=== PATIENT | male | born 1970 | race Caucasian/White ===

== ENCOUNTER 2022-09-24 09:34 | Outpatient (CLI) | payer OTHER, SELFPAY ==
--- NOTE | ~2022-09-24 | XR_ITS ---
Clinical Indication: Hypertension PA and lateral views of the chest: Comparison: None Findings: The lungs are clear, without evidence of focal consolidation or pleural effusion. Cardiome diastinal silhouette is within normal limits. Bones and soft tissues are unremarkable. Impression: Normal chest. Reviewed, dictated and finalized at location . Impression: Normal chest.
--- NOTE | 2022-09-24 10:14 | ECG_ITS ---
Measurements Intervals [place] Rate: 67 P: 29 ND: 185 QRS: 28 QRSD: 117 T: 4 QT: 390 QTc: 412 Interpretive Statements SINUS RHYTHM MODERATE INTRAVENTRICULAR CONDUCTION DELAY [110+ ms QRS DURATION] NO PREVIOUS ECG AVAILABLE FOR COMPARISON Electronically Signed On 09-24-2022 11:58:04 CDT by Tessa Greenberg M.D.
[2022-09-24 10:37] LABS: Basophils Absolute Auto 0.1 K/mm3 (0.0-0.1); Basophils Percent Auto 1.5 % (0.2-1.2); Eosinophils Percent Auto 0.4 % (0-4.4); Hematocrit 43.6 % (42.0-52.0); Hemoglobin 14.5 g/dL (14.0-18.0); Immature Granulocyte Absolute 0.03 K/mm3 (0.00-0.031); Immature Granulocyte Percent A 0.6 % (0-0.5); Lymphocytes Absolute Auto 1.01 K/mm3 (0.9-3.2); Lymphocytes Percent Auto 19.5 % (18.3-44.2); Mean Corpuscular HGB Conc 33.3 g/dl (32-36); Mean Corpuscular Hemoglobin 28.3 pg (26-34); Mean Corpuscular Volume 85.2 fl (80-100); Monocytes Absolute Auto 0.4 K/mm3 (0.1-0.6); Monocytes Percent Auto 7.7 % (2.6-8.5); Neutrophils Absolute Auto 3.6 K/mm3 (1.3-6.7); Neutrophils Percent Auto 70.3 % (45.5-73.1); Platelet Count Result 213 k/mm3 (150-375); Red Blood Count 5.12 M/mm3 (4.6-6.20); Red Cell Distribution Width 13.7 % (11.5-14.5); White Blood Count 5.2 K/mm3 (4.5-10.0)
[2022-09-24 10:51] LABS: Alanine Aminotransferase 57 U/L (6-50); Alkaline Phosphatase 98 U/L (38-126); Anion Gap 6 mmol/L (8-16); Aspartate Amino Transferase 39 U/L (17-59); Bilirubin,Total 0.8 mg/dL (0.2-1.3); Blood Urea Nitrogen 14 mg/dL (9-20); Calcium 9.2 mg/dL (8.4-10.2); Carbon Dioxide 30 mmol/L (22-30); Chloride 103 mmol/L (98-107); Cholesterol 172 mg/dL (0-200); Estimated Glomerular Filt Rate > 60; Glucose 98 mg/dL (65-110); HDL Direct 44 mg/dL; Potassium 4.1 mmol/L (3.4-5.0); Sodium 139 mmol/L (137-145); Triglycerides 49 mg/dL (<150)
[2022-09-24 11:03] LABS: LDL Cholesterol Direct 110 mg/dL
[2022-09-24 11:04] LABS: Appearance Urine Clear (Clear); Bilirubin Urine Negative (Negative); Blood Urine Negative (Negative); Color Urine Yellow (Yellow); Glucose Urine UA Negative (Negative); Ketones Urine Negative (Negative); Leukocyte Esterase Ur Negative LEU/UL (NEGATIVE); Nitrate Urine Negative (Negative); Protein Urine Negative (Negative); Specific Grav Ur 1.018 (1.001-1.035); Urobilinogen Urine 0.2 mg/dL (<2.0); pH Urine 6.5 (5.0-9.0)
[2022-09-24 11:08] LABS: Add Urine Microscopic? NO
[2022-09-24 11:21] LABS: Hemoglobin A1C 5.1 % (<5.7); Prostate Specific Antigen 0.9 ng/mL (< OR = 4.0); Thyroid Stimulating Hormone 0.922 uIU/mL (0.465-4.680)
[2022-09-30 15:26] LABS: Metanephrine, Free 34 pg/mL (<=57); Normetanephrine, Free 170 pg/mL (<=148); Total, Free (MN + NMN) 204 pg/mL (<=205)
== END 2022-09-24 09:35 | disposition home or self-care (01) ==
PROVIDERS: PCP Family Medicine; Visit Provider Family Medicine
DX: E78.2 Mixed hyperlipidemia (principal); I10 Essential (primary) hypertension; E66.9 Obesity, unspecified; K21.9 Gastro-esophageal reflux disease without esophagitis; Z12.5 Encounter for screening for malignant neoplasm of prostate; I45.9 Conduction disorder, unspecified
CPT/HCPCS: 36415; 71046; 80053; 80061; 81003; 83036; 83835; 84153; 84443; 85025; 93005; G0103

== ENCOUNTER → 2022-10-29 15:23 | Outpatient (CLI) | payer OTHER, SELFPAY ==
--- NOTE | ~2022-10-29 | US_ITS ---
EXAMINATION: US retroperitoneal duplex ltd DATE: 10/29/2022 15:40 INDICATION: Hypertension. TECHNIQUE: Multiple grayscale, color Doppler, and pulsed Doppler images of the kidneys and renal mely melvina were obtained. COMPARISON: None. FINDINGS: The aorta peak systolic velocity is 88 cm/s. The right renal artery peak systolic velocity is 104 cm/ s in the proximal segment, 88 cm/s in the mid segment, and 84 cm/s in the distal segment. The left re nal artery peak systolic velocity is 58 cm/s in the proximal segment, 65 cm/s in the mid segment, and 57 cm/s in the distal segment. IMPRESSION: 1. No Doppler evidence of renal artery stenosis. Reviewed, dictated and finalized at location A.
== END ==
PROVIDERS: PCP Family Medicine; Visit Provider Family Medicine
DX: I10 Essential (primary) hypertension (principal)
CPT/HCPCS: 93976

== ENCOUNTER 2022-11-03 08:33 | Outpatient (CLI) | payer OTHER, SELFPAY ==
--- NOTE | 2022-11-16 10:19 | WPDHOMESLEEP ---
Sleep Study - Home Unattended Date of Study: 11/03/22 Ordering Provider: Britton Jhaveri MD Interpreting Provider: Clemencia Chand MD Home Sleep Study Type: Watch PAT Height: 1.83 m Weight: 107.048 kg Body Mass Index: 32.0 Neck Circumference (inches): 18 [place]: 9 Reason for Sleep Study Snoring, hypersomnolence Sleep History Jessica Molina is a 52-year-old male hypertension, GERD, seasonal allergies, obesity, and current tobacco use who had a home sleep study ordered by his primary care for evaluation of snoring and daytime sleepiness. The patient rarely awakens from sleep short of breath.? He rarely awakens at night with heartburn, belching or cough.? He constantly snores, and it is frequently loud enough that others complain.? He denies having trouble sleeping when he has a cold.? He denies waking up gasping for air throughout the night.? He denies having breathing problems at night observed by himself or others.? He denies sweating excessively at night.? He rarely has heart palpitations or irregular heartbeats during the night.? He denies falling asleep during the day or while driving.? He denies feeling paralyzed on falling asleep or on waking. He does not have loss of muscle tone with strong emotion. He denies having trouble at work due to sleepiness.? He rarely experiences vivid dreamlike scenes upon awakening or falling asleep.? He denies feeling afraid going to sleep.? He rarely has nightmares and occasionally remembers his dreams.? He frequently has thoughts racing through his mind.? He denies feeling sad or depressed.? He occasionally has anxiety.? He rarely has muscular tension.? He occasionally notices parts of his body jerk.? He rarely kicks during the night.? He denies having crawling and aching feelings in his legs but rarely has leg pain during the night.? He denies grinding his teeth during sleep and denies awakening with morning jaw pain.? He denies being bothered by pain during the day and denies being awakened by pain during the night.? He occasionally wakes up feeling stiff in the morning.? He rarely wakes up with sore or achy muscles.? He rarely wakes up with pain in the neck, spine or other joints.? Normal bedtime is between 9-930 p.m. on weekdays and at 10:30 p.m. on the weekends.? It takes him a few minutes to fall asleep.? He wakes up once throughout the night to urinate and is able to fall back asleep immediately.? He wakes up at 5:30 a.m. on weekdays and at 7:00 a.m. on the weekends.? He typically gets 7 hours of sleep per night.? He does not stay in bed after waking up in the morning.? He currently lives with his and 2 children.? He does not consume any caffeinated beverages within 2 hours of bedtime.? He rarely takes naps in the afternoon or the evening but when he does they are refreshing. Habits: Tobacco: Quit cigarettes 16 years ago, occasionally smokes cigars. Caffeine: 5-6 caffeinated beverages/day.? Alcohol: 6-8 alcoholic beverages per sitting when he does drink.? Recreational substance: none. [facility] Past Medical History Medical History (Updated 11/16/22 @ 10:20 by Clemencia Chand MD) BMI 31.0-31.9,adult BMI 32.0-32.9,adult Colon cancer screening Elevated liver enzymes (09/24/22) AST normal at 39 with ALT slightly elevated at 57 on 09/24/2022. Encounter for prostate cancer screening PSA 0.9 on 09/24/2022. Encounter for wellness examination in adult Essential hypertension (~09/24/22) EKG 09/24/2022 with sinus rhythm with intraventricular conduction delay. Chest x-ray revealed no active lung disease. No renal artery stenosis on ultrasound 10/29/2022. GERD (gastroesophageal reflux disease) history of stricture 15 years ago. Hypersomnia Obesity (BMI 30.0-34.9) Seasonal allergic rhinitis Seasonal allergies Tobacco use disorder, mild, abuse 20 pack-year history with patient quitting at age 39 except for 1 cigar per month. Family History Family History (Updated 09/24/22 @ 08:22 by Yolande Tan
[2022-11-16 10:29] VITALS: BMI 32.0
== END 2022-11-04 12:38 | disposition home or self-care (01) ==
LOC: ANHCSM 08:34
PROVIDERS: PCP Family Medicine; Visit Provider Family Medicine
DX: G47.10 Hypersomnia, unspecified (principal); G47.33 Obstructive sleep apnea (adult) (pediatric)
CPT/HCPCS: 95800

== ENCOUNTER → 2023-02-25 08:31 | Outpatient (CLI) | payer OTHER, SELFPAY ==
--- NOTE | ~2023-02-25 | XR_ITS ---
Left Knee Technique: AP, lateral, and sunrise views were obtained. Clinical History: Pain Findings: No fracture or dislocation is seen. Osseous alignment is anatomic. There is mild patellar s purring. Moderate joint effusion is seen. Impression: Mild patellar spurring. Moderate joint effusion. Reviewed, dictated and finalized at [facility]. Impression: Mild patellar spurring. Moderate joint effusion.
== END ==
PROVIDERS: PCP Nurse Practitioner Family; Visit Provider Nurse Practitioner Family
DX: M25.762 Osteophyte, left knee (principal); M25.462 Effusion, left knee
CPT/HCPCS: 73564

== ENCOUNTER 2023-03-15 07:00 | Outpatient (NON) | payer OTHER, SELFPAY | END 2023-03-15 07:01 | disposition home or self-care (01) | PROVIDERS: PCP Family Medicine; Visit Provider Internal Medicine Gastroenterology | DX: Z12.5 Encounter for screening for malignant neoplasm of prostate (principal); K62.1 Rectal polyp | CPT/HCPCS: 88305 ==

== ENCOUNTER 2023-03-15 08:10 | Day surgery (SDC) | payer OTHER, SELFPAY ==
[2023-02-11 11:53] VITALS: BMI 32.1
--- NOTE | 2023-03-12 14:31 | PM.HPGS ---
History of Present Illness History of Present Illness Consent: Risks, benefits, and alternatives have been discussed and questions answered. Patient agrees to proceed with procedure. Chief complaint: Neoplasm Screening Narrative: Jessica Molina is a 52 year old male referred for colon cancer screening. this is his 1st colonoscopy. Review of Systems Review of Systems: All systems reviewed & are unremarkable except as noted in HPI and below PMFSH Past Medical History Medical History BMI 31.0-31.9,adult BMI 32.0-32.9,adult Colon cancer screening Elevated liver enzymes (09/24/22) AST normal at 39 with ALT slightly elevated at 57 on 09/24/2022. Encounter for prostate cancer screening PSA 0.9 on 09/24/2022. Encounter for wellness examination in adult Essential hypertension (~09/24/22) EKG 09/24/2022 with sinus rhythm with intraventricular conduction delay. Chest x-ray revealed no active lung disease. No renal artery stenosis on ultrasound 10/29/2022. GERD (gastroesophageal reflux disease) history of stricture 15 years ago. Hypersomnia Left knee pain Obesity (BMI 30.0-34.9) Seasonal allergic rhinitis Seasonal allergies Tobacco use disorder, mild, abuse 20 pack-year history with patient quitting at age 39 except for 1 cigar per month. Surgical History Surgical History History of appendectomy Family History Family History Father Diabetes mellitus Grandparent Hypertension Grandparent Diabetes mellitus Social History Social History Smoking status: Former smoker Tobacco type: cigarettes and cigars Additional smoking assessment comments: quit 2009 years ago, smokes ooccasional cigar Alcohol intake: current Drinks per week: 7 Alcohol use details: socially, not daily Substance use: never Substance use type: does not use Lack of Transportation: No Lack of Food: Never True Current Housing: I Have Housing Concerned About Future Housing: No Difficulty Paying Gas/Electric Bills: No Difficulty Paying for Meds: No Currently Unemployed: No Education: High School Diploma/GED Difficulty w/ Childcare or Family Care: No Living arrangements: with family Occupation/Education: occupation Additional occupation/education comments: [employer] Gender identity (if verbalized by the patient): Male Sexual Orientation (if Verbalized by the Patient): Straight or Heterosexual Spiritual care concerns: No Agree to blood products: Yes Meds Home Medications and Allergies Home Medications Medication Instructions Recorded Confirmed Type diphenhydramine HCl 25 mg tablet 25 mg PO QHS PRN Allergic Symptoms 09/24/22 03/15/23 History (Benadryl Allergy) famotidine-Ca carb-mag hydrox 10 1 tablet PO BID PRN reflux 09/24/22 03/15/23 History mg-800 mg-165 mg chewable tablet (Pepcid Complete) fluticasone propionate 50 1 spray intranasal BID 09/24/22 03/15/23 History mcg/actuation nasal spray,suspension (Flonase Allergy Relief) amlodipine 10 mg tablet 10 mg PO DAILY #30 tabs 10/21/22 03/15/23 Rx Allergies Allergy/AdvReac Type Severity Reaction Status Date / Time Penicillins Allergy Mild Rash Verified 03/15/23 09:02 Exam Resp: Auscultation: clear to auscultation bilaterally Cardio: Rate: regular rate Rhythm: regular rhythm GI: GI Palp: Yes Soft to palpation and No Tenderness to palpation present (GI) Assessment and Plan Assessment and plan (1) Colon cancer screening: Code(s): Z12.11 - Encounter for screening for malignant neoplasm of colon Status: Acute Assessment and Plan: Colonoscopy with possible biopsy or polypectomy or cautery or injection of substances.
[2023-03-15 09:03] VITALS: BP 138/94; PULSE 58; RESP 16; TEMP 36.7; O2SAT 100
[2023-03-15] MEDS: LACTATED RINGERS 1,000 ML 150 ML IV CONT (09:14)
--- NOTE | 2023-03-15 09:55 | WPDANESEPPF ---
Anes - Initial Pre Proc Eval Procedure: Operation Date: 03/15/23 10:30 Proposed Procedures p Screening Colonoscopy - John Alcantar MD Date/Time: 03/15/23 09:55 Surgeon: John Alcantar MD Pre Op Diagnosis: Neoplasm Screening Patient Data Age: 52 Gender: M Height: 1.83 m Weight: 105.7 kg Last Vital Signs Temp 36.7 C 03/15/23 09:03 Pulse 58 L 03/15/23 09:03 Resp 16 03/15/23 09:03 BP 138/94 H 03/15/23 09:03 Pulse Ox 100 03/15/23 09:03 O2 Del Method Room Air 03/15/23 09:03 Allergies Allergy/AdvReac Type Severity Reaction Status Date / Time Penicillins Allergy Mild Rash Verified 03/15/23 09:02 Home Medications Medication Instructions Recorded Confirmed Type diphenhydramine HCl 25 mg tablet 25 mg PO QHS PRN Allergic Symptoms 09/24/22 03/15/23 History (Benadryl Allergy) famotidine-Ca carb-mag hydrox 10 1 tablet PO BID PRN reflux 09/24/22 03/15/23 History mg-800 mg-165 mg chewable tablet (Pepcid Complete) fluticasone propionate 50 1 spray intranasal BID 09/24/22 03/15/23 History mcg/actuation nasal spray,suspension (Flonase Allergy Relief) amlodipine 10 mg tablet 10 mg PO DAILY #30 tabs 10/21/22 03/15/23 Rx Patient hx anesthesia problems: none Family hx anesthesia problems: none Results Review: All pre-operative results and documents have been reviewed as part of the pre-operative evaluation. [facility] Past Medical History Medical History BMI 31.0-31.9,adult BMI 32.0-32.9,adult Colon cancer screening Elevated liver enzymes (09/24/22) AST normal at 39 with ALT slightly elevated at 57 on 09/24/2022. Encounter for prostate cancer screening PSA 0.9 on 09/24/2022. Encounter for wellness examination in adult Essential hypertension (~09/24/22) EKG 09/24/2022 with sinus rhythm with intraventricular conduction delay. Chest x-ray revealed no active lung disease. No renal artery stenosis on ultrasound 10/29/2022. GERD (gastroesophageal reflux disease) history of stricture 15 years ago. Hypersomnia Left knee pain Obesity (BMI 30.0-34.9) Seasonal allergic rhinitis Seasonal allergies Tobacco use disorder, mild, abuse 20 pack-year history with patient quitting at age 39 except for 1 cigar per month. Surgical History Surgical History History of appendectomy Family History Family History Father Diabetes mellitus Grandparent Hypertension Grandparent Diabetes mellitus Social History Social History Smoking status: Former smoker Tobacco type: cigarettes and cigars Additional smoking assessment comments: quit 2009 years ago, smokes ooccasional cigar Alcohol intake: current Drinks per week: 7 Alcohol use details: socially, not daily Substance use: never Substance use type: does not use Lack of Transportation: No Lack of Food: Never True Current Housing: I Have Housing Concerned About Future Housing: No Difficulty Paying Gas/Electric Bills: No Difficulty Paying for Meds: No Currently Unemployed: No Education: High School Diploma/GED Difficulty w/ Childcare or Family Care: No Living arrangements: with family Occupation/Education: occupation Additional occupation/education comments: [employer] Gender identity (if verbalized by the patient): Male Sexual Orientation (if Verbalized by the Patient): Straight or Heterosexual Spiritual care concerns: No Agree to blood products: Yes Anes - Eval Final PreProcedure Day of Procedure 03/15/23 09:55 Patient weight: obese Heart: regular rate and rhythm Lungs: decreased breath sounds Airway: Mallampati scale class II Neurological: alert and oriented Last oral intake: >/= 8 hours ASA classification: III Emergent: no Anesthe
[2023-03-15 10:56] VITALS: BP 143/98; PULSE 61; RESP 16; O2SAT 97
[2023-03-15 11:06] VITALS: BP 135/94; PULSE 64; RESP 18; O2SAT 99
[2023-03-15 11:16] VITALS: BP 140/94; PULSE 65; RESP 20; O2SAT 99
--- NOTE | 2023-03-15 11:18 | WPDANESPN ---
Anes - Prog Note Post-Op Date/Time: 03/15/23 11:18 Cardiovascular status: normal Respiratory status: normal Airway patency: baseline Mental status: baseline Post-Op hydration status: normal Vital Signs: Last Vital Signs Temp 36.7 C 03/15/23 09:03 Pulse 64 03/15/23 11:06 Resp 18 03/15/23 11:06 BP 135/94 H 03/15/23 11:06 Pulse Ox 99 03/15/23 11:06 O2 Del Method Room Air 03/15/23 11:06 Pain Score (VAS): 0 I/O: Intake & Output 03/14/23 03/15/23 03/15/23 23:59 07:59 15:59 Intake Total 400 Balance 400 Patient Feedback: Patient satisfied with anesthetic care.
== END 2023-03-15 11:24 | disposition home or self-care (01) ==
PROVIDERS: PCP Family Medicine; Visit Provider Internal Medicine Gastroenterology
PROC: 0DJD8ZZ Inspection of Lower Intestinal Tract, Via Natural or Artificial Opening Endoscopic (ICD-10-PCS; CPT 45378; principal; 2023-03-15 10:30)
DX: Z12.11 Encounter for screening for malignant neoplasm of colon (principal); D12.8 Benign neoplasm of rectum
CPT/HCPCS: 45385

== ENCOUNTER 2023-11-23 08:40 | Outpatient (CLI) | payer OTHER, SELFPAY ==
[2023-11-23 09:26] LABS: Basophils Absolute Auto 0.1 K/mm3 (0.0-0.1); Basophils Percent Auto 0.9 % (0.2-1.2); Hematocrit 41.6 % (42.0-52.0); Hemoglobin 13.6 g/dL (14.0-18.0); Immature Granulocyte Absolute 0.01 K/mm3 (0.00-0.031); Immature Granulocyte Percent A 0.2 % (0-0.5); Lymphocytes Absolute Auto 0.84 K/mm3 (0.9-3.2); Lymphocytes Percent Auto 15.3 % (18.3-44.2); Mean Corpuscular HGB Conc 32.7 g/dl (32-36); Mean Corpuscular Hemoglobin 28.5 pg (26-34); Mean Platelet Volume 10.7 fl (7.4-10.4); Monocytes Absolute Auto 0.5 K/mm3 (0.1-0.6); Monocytes Percent Auto 9.1 % (2.6-8.5); Neutrophils Absolute Auto 4.1 K/mm3 (1.3-6.7); Neutrophils Percent Auto 74.5 % (45.5-73.1); Platelet Count Result 206 k/mm3 (150-375); Red Blood Count 4.78 M/mm3 (4.6-6.20); Red Cell Distribution Width 13.2 % (11.5-14.5); White Blood Count 5.5 K/mm3 (4.5-10.0)
[2023-11-23 09:55] LABS: Alanine Aminotransferase 22 U/L (6-50); Albumin Level 4.7 g/dL (3.5-5.1); Alkaline Phosphatase 72 U/L (38-126); Anion Gap 8 mmol/L (4-12); Aspartate Amino Transferase 24 U/L (17-59); Bilirubin,Total 0.5 mg/dL (0.2-1.3); Blood Urea Nitrogen 18 mg/dL (9-20); Calcium 9.3 mg/dL (8.4-10.2); Carbon Dioxide 28 mmol/L (22-30); Chloride 105 mmol/L (98-107); Cholesterol 147 mg/dL (0-200); Estimated Glomerular Filt Rate > 60; Glucose 92 mg/dL (65-110); HDL Direct 42 mg/dL; Potassium 3.7 mmol/L (3.4-5.0); Sodium 141 mmol/L (137-145); Triglycerides 101 mg/dL (<150)
[2023-11-23 10:06] LABS: LDL Cholesterol Direct 88 mg/dL
[2023-11-23 10:25] LABS: Prostate Specific Antigen 0.9 ng/mL (< OR = 4.0); Thyroid Stimulating Hormone 0.915 uIU/mL (0.465-4.680)
[2023-11-30 13:16] LABS: GGT 25 U/L
== END 2023-11-23 08:41 | disposition home or self-care (01) ==
LOC: ANHLAB 08:41
PROVIDERS: PCP Family Medicine; Visit Provider Family Medicine
DX: Z12.5 Encounter for screening for malignant neoplasm of prostate (principal); I10 Essential (primary) hypertension; E78.2 Mixed hyperlipidemia; R74.8 Abnormal levels of other serum enzymes; G47.33 Obstructive sleep apnea (adult) (pediatric)
CPT/HCPCS: 36415; 80053; 80061; 82977; 84153; 84443; 85025; G0103

== ENCOUNTER 2023-11-24 07:06 | Outpatient (CLI) | payer OTHER, SELFPAY ==
[2023-11-24 07:44] LABS: Appearance Urine Clear (Clear); Bilirubin Urine Negative (Negative); Blood Urine Negative (Negative); Color Urine Yellow (Yellow); Glucose Urine UA Negative (Negative); Ketones Urine Negative (Negative); Leukocyte Esterase Ur Negative LEU/UL (Negative); Nitrate Urine Negative (Negative); Protein Urine Negative (Negative); Specific Grav Ur 1.014 (1.001-1.035); Urobilinogen Urine 0.2 mg/dL (<2.0)
[2023-11-24 07:51] LABS: Add Urine Microscopic? NO
== END 2023-11-24 07:07 | disposition home or self-care (01) ==
LOC: ANHLAB 07:09
PROVIDERS: PCP Family Medicine; Visit Provider Family Medicine
DX: I10 Essential (primary) hypertension (principal)
CPT/HCPCS: 81003

== ENCOUNTER 2023-12-08 07:01 | Outpatient (CLI) | payer OTHER, SELFPAY ==
[2023-12-08 07:55] LABS: Basophils Percent Auto 0.7 % (0.2-1.2); Hematocrit 41.6 % (42.0-52.0); Hemoglobin 14.1 g/dL (14.0-18.0); Immature Granulocyte Absolute 0.01 K/mm3 (0.00-0.031); Immature Granulocyte Percent A 0.2 % (0-0.5); Lymphocytes Absolute Auto 0.76 K/mm3 (0.9-3.2); Lymphocytes Percent Auto 17.6 % (18.3-44.2); Mean Corpuscular HGB Conc 33.9 g/dl (32-36); Mean Corpuscular Hemoglobin 29.2 pg (26-34); Mean Corpuscular Volume 86.1 fl (80-100); Monocytes Absolute Auto 0.7 K/mm3 (0.1-0.6); Monocytes Percent Auto 16.2 % (2.6-8.5); Neutrophils Absolute Auto 2.8 K/mm3 (1.3-6.7); Neutrophils Percent Auto 65.3 % (45.5-73.1); Platelet Count Result 204 k/mm3 (150-375); Red Blood Count 4.83 M/mm3 (4.6-6.20); Red Cell Distribution Width 13.2 % (11.5-14.5); White Blood Count 4.3 K/mm3 (4.5-10.0)
[2023-12-08 09:11] LABS: Iron 31 ug/dL (49-181)
[2023-12-08 09:16] LABS: Folic Acid > 20.0 ng/mL (2.76->20)
[2023-12-08 09:20] LABS: Percent Iron Saturation 11 % (20-50)
== END 2023-12-08 07:02 | disposition home or self-care (01) ==
PROVIDERS: PCP Family Medicine; Visit Provider Family Medicine
DX: D64.9 Anemia, unspecified (principal)
CPT/HCPCS: 36415; 82607; 82728; 82746; 83540; 83550; 85025

== ENCOUNTER 2024-05-16 07:01 | Outpatient (CLI) | payer OTHER, SELFPAY ==
[2024-05-16 08:00] LABS: Alanine Aminotransferase 27 U/L (6-50); Albumin Level 4.2 g/dL (3.5-5.1); Alkaline Phosphatase 80 U/L (38-126); Anion Gap 4 mmol/L (4-12); Aspartate Amino Transferase 31 U/L (17-59); Bilirubin,Total 0.4 mg/dL (0.2-1.3); Blood Urea Nitrogen 14 mg/dL (9-20); Calcium 9.6 mg/dL (8.4-10.2); Carbon Dioxide 29 mmol/L (22-30); Chloride 106 mmol/L (98-107); Estimated Glomerular Filt Rate > 60; Glucose 91 mg/dL (65-110); Potassium 3.5 mmol/L (3.4-5.0); Sodium 139 mmol/L (137-145)
[2024-05-16 08:04] LABS: Basophils Absolute Auto 0.1 K/mm3 (0.0-0.1); Basophils Percent Auto 1.6 % (0.2-1.2); Hematocrit 37.1 % (42.0-52.0); Hemoglobin 12.6 g/dL (14.0-18.0); Immature Granulocyte Absolute 0.02 K/mm3 (0.00-0.031); Immature Granulocyte Percent A 0.4 % (0-0.5); Lymphocytes Percent Auto 25.1 % (18.3-44.2); Mean Corpuscular Hemoglobin 29.9 pg (26-34); Mean Corpuscular Volume 88.1 fl (80-100); Mean Platelet Volume 10.3 fl (7.4-10.4); Monocytes Absolute Auto 0.6 K/mm3 (0.1-0.6); Monocytes Percent Auto 11.1 % (2.6-8.5); Neutrophils Absolute Auto 3.4 K/mm3 (1.3-6.7); Neutrophils Percent Auto 61.8 % (45.5-73.1); Platelet Count Result 217 k/mm3 (150-375); Red Blood Count 4.21 M/mm3 (4.6-6.20); Red Cell Distribution Width 13.6 % (11.5-14.5); White Blood Count 5.6 K/mm3 (4.5-10.0)
[2024-05-16 08:06] LABS: Iron 72 ug/dL (49-181)
[2024-05-16 08:19] LABS: Percent Iron Saturation 23 % (20-50)
== END 2024-05-16 07:02 | disposition home or self-care (01) ==
PROVIDERS: PCP Family Medicine; Visit Provider Family Medicine
DX: R74.8 Abnormal levels of other serum enzymes (principal); D50.9 Iron deficiency anemia, unspecified
CPT/HCPCS: 36415; 80053; 82728; 83540; 83550; 85025

== ENCOUNTER 2024-08-02 07:06 | Outpatient (CLI) | payer OTHER, SELFPAY ==
--- OUTSIDE RECORDS SUMMARY | 2024-08-02 07:09 | XMS_ITS | Clinical Summary ---
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 Gender Identity Not on file Sexual Orientation Not on file Plan of Treatment Health Maintenance Due Date Last Done Comments Hepatitis C Virus (HCV) Screening 1969 TdaP Immunization 1969 Hepatitis B Immunization (1 of 3 - 19+ 3-dose series) 1988 Colonoscopy 2014 Colorectal Cancer Screening 2014 Cologuard 08/15/2019 Immunochemical Fecal Occult Blood 08/15/2019 Pneumococcal Immunization (5 0+ years) (1 of 1 - PCV) 08/15/2019 Zoster Immunization (1 of 2) 08/15/2019 Influenza Immunization (#1) 2024 SARS-COV-2 Immunization ( - season) 2024 Respiratory Syncytial Virus (RSV) Immunization (Adult) (1 - 1-dose 75+ series) 2044 Meningococcal Immunization (ACWY) Aged Out No longer eligible based on patient's age to complete this topic Pneumococcal Immunization Combined Aged Out No longer eligible based on patient's age to complete this topic Rotavirus Immunization Aged Out No lo nger eligible based on patient's age to complete this topic
[2024-08-02 08:08] LABS: Basophils Absolute Auto 0.1 K/mm3 (0.0-0.1); Basophils Percent Auto 1.2 % (0.2-1.2); Hematocrit 37.9 % (42.0-52.0); Hemoglobin 13.2 g/dL (14.0-18.0); Immature Granulocyte Absolute 0.01 K/mm3 (0.00-0.031); Immature Granulocyte Percent A 0.2 % (0-0.5); Lymphocytes Absolute Auto 1.33 K/mm3 (0.9-3.2); Lymphocytes Percent Auto 25.6 % (18.3-44.2); Mean Corpuscular HGB Conc 34.8 g/dl (32-36); Mean Corpuscular Hemoglobin 30.6 pg (26-34); Mean Corpuscular Volume 87.7 fl (80-100); Mean Platelet Volume 10.2 fl (7.4-10.4); Monocytes Absolute Auto 0.5 K/mm3 (0.1-0.6); Monocytes Percent Auto 9.8 % (2.6-8.5); Neutrophils Absolute Auto 3.3 K/mm3 (1.3-6.7); Neutrophils Percent Auto 63.2 % (45.5-73.1); Platelet Count Result 192 k/mm3 (150-375); Red Blood Count 4.32 M/mm3 (4.6-6.20); Red Cell Distribution Width 13.2 % (11.5-14.5); White Blood Count 5.2 K/mm3 (4.5-10.0)
[2024-08-02 08:38] LABS: Iron 94 ug/dL (49-181)
[2024-08-02 08:53] LABS: Percent Iron Saturation 33 % (20-50)
[2024-08-02 09:37] LABS: Folic Acid > 20.0 ng/mL (2.76->20)
== END 2024-08-02 07:07 | disposition home or self-care (01) ==
LOC: ANHLAB 07:07
PROVIDERS: PCP Family Medicine; Visit Provider Family Medicine
DX: D50.9 Iron deficiency anemia, unspecified (principal)
CPT/HCPCS: 36415; 82607; 82728; 82746; 83540; 83550; 85025

== ENCOUNTER 2024-08-22 00:59 | Day surgery (SDC) | payer OTHER, SELFPAY ==
[2024-08-11 10:02] VITALS: BMI 26.2
--- OUTSIDE RECORDS SUMMARY | 2024-08-22 01:02 | XMS_ITS | Clinical Summary ---
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
[2024-08-22 06:21] VITALS: BP 130/81; PULSE 62; RESP 18; TEMP 36.1; O2SAT 100; BMI 26.9
[2024-08-22] MEDS: LACTATED RINGERS 1,000 ML 150 ML IV CONT (06:28)
--- NOTE | 2024-08-22 07:04 | P.PNAN_ITS ---
Anes - Initial Pre Proc Eval Procedure: Operation Date: 08/22/24 07:30 Proposed Procedures p Esophagogastroduodenoscopy - Francis Garcia MD Date/Time: 08/22/24 07:04 Surgeon: Francis Garcia MD Pre Op Diagnosis: Anemia Patient Data Age: 54 Gender: M Height: 1.83 m Weight: 90.1 kg Last Vital Signs Temp 36.1 C L 08/22/24 06:21 Pulse 62 08/22/24 06:21 Resp 18 08/22/24 06:21 BP 130/81 08/22/24 06:21 Pulse Ox 100 08/22/24 06:21 O2 Del Method Room Air 08/22/24 06:21 Allergies Allergy/AdvReac Type Severity Reaction Status Date / Time Penicillins Allergy Mild Rash Verified 08/22/24 06:20 Home Medications ?Medication ?Instructions ?Recorded ?Confirmed ?Type famotidine-Ca carb-mag hydrox 10 1 tablet PO BID PRN reflux 09/24/22 08/11/24 History mg-800 mg-165 mg chewable tablet (Pepcid Complete) fluticasone propionate 50 1 spray intranasal BID 09/24/22 08/11/24 History mcg/actuation nasal spray,suspension (Flonase Allergy Relief) loratadine 10 mg tablet (Claritin) 10 mg PO DAILY PRN allergic 10/28/23 08/11/24 History symptoms valacyclovir 1 gram tablet 1,000 mg PO .COMPLEX #20 tabs 10/28/23 08/11/24 Rx ferrous sulfate 325 mg (65 mg 325 mg PO DAILY 02/06/24 08/22/24 History iron) tablet,delayed release tirzepatide 5 mg/0.5 mL 5 mg subcut WEEKLY 05/22/24 08/22/24 History subcutaneous pen injector (Mounjaro) amlodipine 10 mg tablet 10 mg PO DAILY #90 tabs 07/24/24 08/22/24 Rx irbesartan 150 mg tablet 150 mg PO DAILY #90 tabs 07/24/24 08/22/24 Rx Patient hx anesthesia problems: none Family hx anesthesia problems: none Results Review: All pre-operative results and documents have been reviewed as part of the pre-operative evaluation. [facility] Past Medical History Medical History BMI 28.0-28.9,adult Overweight (BMI 25.0-29.9) Iron deficiency anemia, unspecified (11/23/23) hemoglobin 13.6 on 11/23/2023.Hemoglobin 14.1 with iron 31 with 11% saturation and ferritin 123, vitamin B12 713, folic acid 03/26/2024. Hemoglobin 12.6, iron 72 with 23% saturation and ferritin 148 on 05/16/2024. Anemia (11/23/23) hemoglobin 13.6 on 11/23/2023.Hemoglobin 14.1 with iron 31 with 11% saturation and ferritin 123, vitamin B12 713, folic acid 03/26/2024. Nail fungal infection Fever blister BMI 30.0-30.9,adult Colon polyp, hyperplastic (03/15/23) 8 mm hyperplastic rectal polyp 03/15/2023 with recheck in 10 years. Left knee pain BMI 31.0-31.9,adult Elevated liver enzymes (09/24/22) AST normal at 39 with ALT slightly elevated at 57 on 09/24/2022. GGT 25, AST 24, ALT 22 on 11/23/2023. Tobacco use disorder, mild, abuse 20 pack-year history with patient quitting at age 39 except for 1 cigar per month. Essential hypertension (~09/24/22) EKG 09/24/2022 with sinus rhythm with intraventricular conduction delay. Chest x-ray revealed no active lung disease. No renal artery stenosis on ultrasound 10/29/2022. Colon cancer screening Hypersomnia Seasonal allergic rhinitis GERD (gastroesophageal reflux disease) history of stricture 15 years ago. BMI 32.0-32.9,adult Obesity (BMI 30.0-34.9) Encounter for prostate cancer screening PSA 0.9 on 09/24/2022. PSA 0.9 on 11/23/2023. Encounter for wellness examination in adult Seasonal allergies Surgical History Surgical History History of appendectomy Family History Family History Father Diabetes mellitus Grandparent Hypertension Grandparent Diabetes mellitus Social History Social History Smoking packs per day: 1 Smoking cigarettes per day: 20.0 Years smoked: 12 Smoking pack-years: 12.00 Smoking status: Former smoker Tobacco type: cigars Additional smoking assessment comments: quit 2009 years ago, smokes ooccasional cigar Alcohol intake: current Drinks per week: 7 Alcohol use details: socially, not daily Substance use: never Substance use type: does not use Lack of Transportation: No Lack of Food: Never True Current Housing: I Have Housing Concerned About Future Housing: No Difficulty Paying Gas/Electric Bills: No Difficulty Paying for Meds: No Currently Unemployed: No Education: High School Diploma/GED Difficulty w/ Childcare or Family Care: No Living arrangements: with family Occupation/Education: occupation Additional occupation/education comments: [employer] Gender identity (if verbalized by the patient): Male Sexual Orientation (if Verbalized by the Patient): Straight or Heterosexual Spiritual care concerns: No Agree to blood products: Yes Anes - Eval Final PreProcedure Day of Procedure 08/22/24 07:04 Patient weight: overweight Heart: regular rate and rhythm Lungs: clear to auscultation Airway: Mallampati scale class II Neurological: alert and oriented Last oral intake: >/= 8 hours ASA classification: III Emergent: no Anesthetic plan: proceed Anesthesia type and monitoring: general GIVS and standard monitoring Results Review: All pre-operative results and documents have been reviewed as part of the pre- operative evaluation. Informed Consent: The patient's anesthetic plan and its attendant risks and benefits were discussed with the patient/family/POA. Questions were solicited and answers provided to the satisfaction of the patient/family/POA.
--- NOTE | 2024-08-22 07:24 | P.HP_ITS ---
History of Present Illness History of Present Illness Consent: Risks, benefits, and alternatives have been discussed and questions answered. Patient agrees to proceed with procedure. Chief complaint: Anemia Narrative: Jessica Molina is a 54 year old male here with anemia, denies overt gib, had colonoscopy 02/2023 Review of Systems Review of Systems: All systems reviewed & are unremarkable except as noted in HPI and below PMFSH Past Medical History Medical History BMI 28.0-28.9,adult Overweight (BMI 25.0-29.9) Iron deficiency anemia, unspecified (11/23/23) hemoglobin 13.6 on 11/23/2023.Hemoglobin 14.1 with iron 31 with 11% satura tion and ferritin 123, vitamin B12 713, folic acid 03/26/2024. Hemoglobin 12.6, iron 72 with 23% saturation and ferritin 148 on 05/16/2024. Anemia (11/23/23) hemoglobin 13.6 on 11/23/2023.Hemoglobin 14.1 with iron 31 with 11% saturation and ferritin 123, vitamin B12 713, folic acid 03/26/2024. Nail fungal infection Fever blister BMI 30.0-30.9,adult Colon polyp, hyperplastic (03/15/23) 8 mm hyperplastic rectal polyp 03/15/2023 with recheck in 10 years. Left knee pain BMI 31.0-31.9,adult Elevated liver enzymes (09/24/22) AST normal at 39 with ALT slightly elevated at 57 on 09/24/2022. GGT 25, AST 24, ALT 22 on 11/23/2023. Tobacco use disorder, mild, abuse 20 pack-year history with patient quitting at age 39 except for 1 cigar per month. Essential hypertension (~09/24/22) EKG 09/24/2022 with sinus rhythm with intraventricular conduction delay. Chest x-ray revealed no active lung disease. No renal artery stenosis on ultrasound 10/29/2022. Colon cancer screening Hypersomnia Seasonal allergic rhinitis GERD (gastroesophageal reflux disease) history of stricture 15 years ago. BMI 32.0-32.9,adult Obesity (BMI 30.0-34.9) Encounter for prostate cancer screening PSA 0.9 on 09/24/2022. PSA 0.9 on 11/23/2023. Encounter for wellness examination in adult Seasonal allergies Surgical History Surgical History History of appendectomy Family History Family History Father Diabetes mellitus Grandparent Hypertension Grandparent Diabetes mellitus Social History Social History Smoking packs per day: 1 Smoking cigarettes per day: 20.0 Years smoked: 12 Smoking pack-years: 12.00 Smoking status: Former smoker Tobacco type: cigars Additional smoking assessment comments: quit 2009 years ago, smokes ooccasional cigar Alcohol intake: current Drinks per week: 7 Alcohol use details: socially, not daily Substance use: never Substance use type: does not use Lack of Transportation: No Lack of Food: Never True Current Housing: I Have Housing Concerned About Future Housing: No Difficulty Paying Gas/Electric Bills: No Difficulty Paying for Meds: No Currently Unemployed: No Education: High School Diploma/GED Difficulty w/ Childcare or Family Care: No Living arrangements: with family Occupation/Education: occupation Additional occupation/education comments: [employer] Gender identity (if verbalized by the patient): Male Sexual Orientation (if Verbalized by the Patient): Straight or Heterosexual Spiritual care concerns: No Agree to blood products: Yes Meds Home Medications and Allergies Home Medications ?Medication ?Instructions ?Recorded ?Confirmed ?Type famotidine-Ca carb-mag hydrox 10 1 tablet PO BID PRN reflux 09/24/22 08/11/24 History mg-800 mg-165 mg chewable tablet (Pepcid Complete) fluticasone propionate 50 1 spray intranasal BID 09/24/22 08/11/24 History mcg/actuation nasal spray,suspension (Flonase Allergy Relief) loratadine 10 mg tablet (Claritin) 10 mg PO DAILY PRN allergic 10/28/23 08/11/24 History symptoms valacyclovir 1 gram tablet 1,000 mg PO .COMPLEX #20 tabs 10/28/23 08/11/24 Rx ferrous sulfate 325 mg (65 mg 325 mg PO DAILY 02/06/24 08/22/24 History iron) tablet,delayed release tirzepatide 5 mg/0.5 mL 5 mg subcut WEEKLY 05/22/24 08/22/24 History subcutaneous pen injector (Julia) amlodipine 10 mg tablet 10 mg PO DAILY #90 tabs 07/24/24 08/22/24 Rx irbesartan 150 mg tablet 150 mg PO DAILY #90 tabs 07/24/24 08/22/24 Rx Allergies Allergy/AdvReac Type Severity Reaction Status Date / Time Penicillins Allergy Mild Rash Verified 08/22/24 06:20 Vital Signs Vital Signs - 24 hr 08/22/24 06:21 Temperature 97 F L Pulse Rate 62 Respiratory Rate 18 Blood Pressure 130/81 Pulse Oximetry 100 Oxygen Delivery Room Air Exam Const: General: comfortable and no acute distress HENMT: Face/Nose/Sinus: Normal nares present Eyes: General: appearance normal, both eyes and all related structures Neck: Neck: no JVD Resp: Auscultation: clear to auscultation bilaterally Cardio: Rate: regular rate Rhythm: regular rhythm GI: Inspection: non-distended GI Palp: Yes Soft to palpation Skin: General skin exam: normal color Neuro: General: gait normal Speech: normal speech Extrem: General: normal to inspection Psych: Mental Status: mental status grossly normal Assessment and Plan Assessment and plan (1) Anemia: Onset Date: 11/23/23 Code(s): D64.9 - Anemia, unspecified Status: Acute Assessment and Plan: egd
[2024-08-22 07:36] VITALS: BP 116/73; PULSE 56; RESP 25; O2SAT 100
[2024-08-22 07:46] VITALS: BP 123/73; PULSE 53; RESP 12; O2SAT 98
[2024-08-22 07:56] VITALS: BP 132/86; PULSE 55; RESP 14; O2SAT 98
== END 2024-08-22 08:01 | disposition home or self-care (01) ==
PROVIDERS: PCP Family Medicine; Referring Provider Family Medicine; Visit Provider Internal Medicine Gastroenterology
PROC: 0DJ08ZZ Inspection of Upper Intestinal Tract, Via Natural or Artificial Opening Endoscopic (ICD-10-PCS; CPT 43239; principal; 2024-08-22 07:30)
DX: D50.9 Iron deficiency anemia, unspecified (principal); K21.00 Gastro-esophageal reflux disease with esophagitis, without bleeding; K29.50 Unspecified chronic gastritis without bleeding
CPT/HCPCS: 43239; 88305; J2003; J2704; J7120

== ENCOUNTER 2025-01-04 07:03 | Outpatient (CLI) | payer OTHER, SELFPAY ==
--- OUTSIDE RECORDS SUMMARY | 2025-01-04 07:05 | XMS_ITS | Clinical Summary ---
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 Name Role Phone Unavailable Primary Care Provider Unavailabl e Social History Tobacco Use Types Packs/Day Years Used Date Smoking Tobacco: Never Assessed Sex and Gender Information Value Date Recorded Sex Assigned at Not on file Legal Sex Male 9:24 AM [employer] Gender Identity Not on file Sexual Orientation Not on file Plan of Treatment Health Maintenance Due Date Last Done Comments Hepatitis C Virus (HCV) Screening 1969 TdaP Immunization 1969 Hepatitis B Immunization (1 of 3 - 19+ 3-dose series) 1988 Cologuard 2014 Colonoscopy 2014 Colorectal Cancer Screening 2014 Immunochemical Fecal Occult Blood 2014 Pneumococcal Immunization (5 0+ years) (1 of 1 - PCV) 08/15/2019 Zoster Immunization (1 of 2) 08/15/2019 SARS-COV-2 Immunization (1 - 2023- season) 2024 Influenza Immunization (#1) 2025 Respiratory Syncytial Virus (RSV) Immunization (Adult) (1 - 1-dose 75+ series) 2044 Human Papillomavirus (HPV) Immunization Aged Out No longer eligible b ased on patient's age to complete this topic Meningococcal Immunization (ACWY) Aged Out No longer eligible based on patient's age to complete this topic Rotavirus Immunization Aged Out No lo nger eligible based on patient's age to complete this topic
[2025-01-04 08:03] LABS: Hematocrit 36.4 % (42.0-52.0); Hemoglobin 12.2 g/dL (14.0-18.0); Immature Granulocyte Percent A 0.6 % (0-0.5); Lymphocytes Absolute Auto 1.37 K/mm3 (0.9-3.2); Mean Corpuscular HGB Conc 33.5 g/dl (32-36); Mean Corpuscular Hemoglobin 30.1 pg (26-34); Mean Corpuscular Volume 89.9 fl (80-100); Nucleated Red Blood Cells Absolute Auto 0.000 K/mm3 (0.0-0.012); Nucleated Red Blood Cells Perc 0.0 % (0.0-0.2); Platelet Count Result 189 k/mm3 (150-375); Red Blood Count 4.05 M/mm3 (4.6-6.20); White Blood Count 5.1 K/mm3 (4.5-10.0)
[2025-01-04 08:15] LABS: Alanine Aminotransferase 31 U/L (6-50); Albumin Level 4.3 g/dL (3.5-5.1); Alkaline Phosphatase 70 U/L (38-126); Anion Gap 6 mmol/L (4-12); Aspartate Amino Transferase 34 U/L (17-59); Bilirubin,Total 0.5 mg/dL (0.2-1.3); Blood Urea Nitrogen 17 mg/dL (9-20); Calcium 9.4 mg/dL (8.4-10.2); Carbon Dioxide 27 mmol/L (22-30); Chloride 106 mmol/L (98-107); Cholesterol 152 mg/dL (0-200); Estimated Glomerular Filt Rate > 60; Glucose 87 mg/dL (65-110); HDL Direct 59 mg/dL; Sodium 139 mmol/L (137-145); Total Protein 6.8 g/dL (6.3-8.2); Triglycerides 58 mg/dL (<150)
[2025-01-04 08:19] LABS: Iron 74 ug/dL (49-181)
[2025-01-04 08:27] LABS: Potassium 3.4 mmol/L (3.4-5.0)
[2025-01-04 08:32] LABS: Percent Iron Saturation 24 % (20-50)
[2025-01-04 08:53] LABS: Prostate Specific Antigen 1.2 ng/mL (< OR = 4.0); Thyroid Stimulating Hormone 1.070 uIU/mL (0.465-4.680)
[2025-01-04 09:00] LABS: Ferritin 161.00 ng/mL (11.1-264)
[2025-01-04 09:28] LABS: Vitamin B12 973.0 pg/mL (239-931)
== END 2025-01-04 07:04 | disposition home or self-care (01) ==
LOC: ANHLAB 07:04
PROVIDERS: PCP Family Medicine; Visit Provider Family Medicine
DX: D64.9 Anemia, unspecified (principal); D50.9 Iron deficiency anemia, unspecified; Z12.5 Encounter for screening for malignant neoplasm of prostate; Z00.00 Encounter for general adult medical examination without abnormal findings; E78.2 Mixed hyperlipidemia
CPT/HCPCS: 36415; 80053; 80061; 82607; 82728; 82746; 83540; 83550; 84153; 84443; 85025; G0103